=== PATIENT | male | born 1970 | race Caucasian/White ===

== ENCOUNTER 2019-08-04 14:32 | Emergency (ER) | payer BC ==
[2019-08-04] MEDS ORDERED: TAMSULOSIN HCL 0.4 MG CAP.SR.24H PO ONE (15:33)
--- NOTE | 2019-08-04 15:39 | ER Document Report ---
ED Medical Screen (RME) - General Chief Complaint: Flank Pain Stated Complaint: ABDOMINAL PAIN Time Seen by Provider: 08/04/19 15:33 Mode of Arrival: Ambulatory Information source: Patient Notes: 49-year-old male presented to ED for complaint of right flank pain. He states on he had a lot of pain and was not able to urinate Friday he woke up and urinated and the pain was gone Friday night he went to bed was a lot of pain and had not been able to urinate for several hours Friday morning he woke up urinated and the pain was gone. He states last night he went to bed he could not urinate and he had the pain again this morning he urinated but he still has the pain. He states he is still having some trouble urinating but he was able to go some this morning. He is alert oriented respirations regular nonlabored speaking in full sentences. He states he does not have any allergies past medical history is fractured ankle problems with his knee and a right inguinal hernia surgery and a right knee surgery he does not smoke drinks daily and does not use any drugs. He is alert oriented respirations regular nonlabored speaking in full sentences. He has been treated with Flomax and will get blood urine and a CT scan. I have greeted and performed a rapid initial assessment of this patient. A comprehensive ED assessment and evaluation of the patient, analysis of test results and completion of medical decision making process will be conducted by an additional ED providers. Physical Exam - Vital signs Vitals: Temp Pulse Resp BP Pulse Ox 98.3 F 99 18 161/87 H 97 08/04/19 14:37 08/04/19 14:37 08/04/19 14:37 08/04/19 14:37 08/04/19 14:37 Course - Vital Signs Vital signs: Temp Pulse Resp BP Pulse Ox 98.3 F 99 18 161/87 H 97 08/04/19 14:37 08/04/19 14:37 08/04/19 14:37 08/04/19 14:37 08/04/19 14:37
[2019-08-04 16:05] LABS: ABSOLUTE EOSINOPHILS # (AUTO) 0.1 10^3/uL (0.0-0.6); ABSOLUTE LYMPHOCYTES (AUTO) 1.1 10^3/uL (0.5-4.7); ABSOLUTE MONOCYTES (AUTO) 1.1 10^3/uL (0.1-1.4); ABSOLUTE NEUT (AUTO) 8.7 10^3/uL (1.7-8.2); BASOPHILS % (AUTO) 0.2 % (0-2); EOSINOPHILS % (AUTO) 0.5 % (0-6); HEMATOCRIT 44.6 % (37.9-51.0); HEMOGLOBIN 16.2 g/dL (13.5-17.0); LYMPHOCYTES % (AUTO) 9.6 % (13-45); MEAN CORPUSCULAR HEMOGLOBIN 33.1 pg (27.0-33.4); MEAN CORPUSCULAR HGB CONC 36.3 g/dL (32.0-36.0); MEAN CORPUSCULAR VOLUME 91 fl (80-97); MONOCYTES % (AUTO) 10.1 % (3-13); PLATELET COUNT 213 10^3/uL (150-450); RED BLOOD COUNT 4.89 10^6/uL (4.35-5.55); RED CELL DISTRIBUTION WIDTH 13.1 % (11.5-14.0); SEGMENTED NEUTROPHILS % (AUTO) 79.6 % (42-78); TOTAL CELLS COUNTED % (AUTO) 100 %; WHITE BLOOD COUNT 10.9 10^3/uL (4.0-10.5)
--- NOTE | 2019-08-04 16:21 | RADIOLOGY REPORT (SQ) ---
EXAM DESCRIPTION: CT ABD/PELVIS NO ORAL OR IV IMAGES COMPLETED DATE/TIME: 08/04/2019 2:58 pm REASON FOR STUDY: right flank pain COMPARISON: None. TECHNIQUE: CT scan of the abdomen and pelvis performed without intravenous or oral contrast. Images reviewed with lung, soft tissue, and bone windows. Reconstructed coronal and sagittal MPR images revi ewed. All images stored on PACS. All CT scanners at this facility use dose modulation, iterative reconstruction, and/or weight based d osing when appropriate to reduce radiation dose to as low as reasonably achievable (ALARA). [facility]: Dose Right [facility]: CareDose [facility]: Dose Right [facility]: Teradose 4D [facility]: Smart Gamma Medica RADIATION DOSE: CT Rad equipment meets quality standard of care and radiation dose reduction techniq ues were employed. CTDIvol: 8.5 mGy. DLP: 501 mGy-cm.mGy. LIMITATIONS: None. FINDINGS: LOWER CHEST: No significant findings. No nodules or infiltrates. NON-CONTRASTED LIVER, SPLEEN, ADRENALS: Evaluation limited by lack of IV contrast. No identified sign ificant masses. PANCREAS: No masses. No peripancreatic inflammatory changes. GALLBLADDER: No identified stones by CT criteria. No inflammatory changes to suggest cholecystitis. RIGHT KIDNEY AND URETER: No suspicious masses. Assessment limited by lack of IV contrast. There is a punctate nonobstructing right inferior pole renal calculus. There is a distal obstructing 9 mm rig ht ureteral calculus at the ureterovesical junction. Moderate right hydronephrosis and hydroureter. Mild surrounding inflammatory change. LEFT KIDNEY AND URETER: No suspicious masses. Assessment limited by lack of IV contrast. No signifi cant calcifications. No hydronephrosis or hydroureter. AORTA AND RETROPERITONEUM: No aneurysm. No retroperitoneal masses or adenopathy. BOWEL AND PERITONEAL CAVITY: No obvious masses or inflammatory changes. No free fluid. APPENDIX: Normal. PELVIS, BLADDER, AND ABDOMINAL WALL:No abnormal masses. No free fluid. Bladder normal. BONES: No significant findings. OTHER: No other significant finding. IMPRESSION: 1. Obstructing distal right ureteral calculus near the ureteral vesicle junction measures 9 mm. Mode rate right hydronephrosis and hydroureter. 2. Punctate nonobstructing right renal calculus. COMMENT: Quality ID # [id number]: Final reports with documentation of one or more dose reduction techniques (e.g., Automated exposure control, adjustment of the mA and/or kV according to patient size, use of iterative reconstruction technique) TECHNICAL DOCUMENTATION: JOB ID: [id number] 2010 [employer]- All Rights Reserved Reading location - IP/workstation name: [email or web address]
[2019-08-04 16:32] LABS: ALBUMIN 4.7 g/dL (3.5-5.0); ALKALINE PHOSPHATASE 74 U/L (38-126); ANION GAP 9 (5-19); ASPARTATE AMINO TRANSFERASE 23 U/L (17-59); BILIRUBIN,TOTAL 1.9 mg/dL (0.2-1.3); BLOOD UREA NITROGEN 14 mg/dL (7-20); CALCIUM 9.4 mg/dL (8.4-10.2); CARBON DIOXIDE 28 mmol/L (22-30); CHLORIDE 103 mmol/L (98-107); GLUCOSE 127 mg/dL (75-110); POTASSIUM 4.4 mmol/L (3.6-5.0); TOTAL PROTEIN 8.5 g/dL (6.3-8.2)
[2019-08-04] MEDS ORDERED: KETOROLAC TROMETHAMINE INJ/PF 30 MG/1 ML SDV IV ONE (16:41)
[2019-08-04] MEDS ORDERED: NORMAL SALINE 1000 ML 1,000 ML IV ONE (16:41)
--- NOTE | 2019-08-04 16:43 | ER Document Report ---
ED General - General Chief Complaint: Abdominal Pain Stated Complaint: ABDOMINAL PAIN Time Seen by Provider: 08/04/19 15:33 Mode of Arrival: Ambulatory Notes: 49-year-old male presents emergency department complaining of right flank pain and difficulty urinating since . States that and vomiting he developed right flank pain that radiated to his right testicle and he was unable to urinate until Friday morning due to the pain, after he urinated all his symptoms went away, happen again Friday evening and lasted for approximately an hour and then went away with urination and then happened again yesterday. Patient complains of increased frequency and decreased quantity of urine. States he is still having intermittent right flank pain although it is not there whenever he is able to urinate. Denies any dysuria or penile discharge. Denies any history of kidney stones however states that he is mother has a history of kidney stones. - Related Data Allergies/Adverse Reactions: No Known Allergies Allergy (Verified 08/04/19 16:07) Past Medical History - General Information source: Patient - Social History Smoking Status: Never Smoker Frequency of alcohol use: 1-2beers daily Drug Abuse: None Family History: Malignancy - Dad with lung cancer., Other - Mother with kidney stones. Patient has suicidal ideation: No Patient has homicidal ideation: No Past Surgical History: Reports: Hx Abdominal Surgery - hernia, Hx Orthopedic Surgery - R knee Review of Systems - Review of Systems Constitutional: No symptoms reported Genitourinary: See HPI, Frequency, Flank pain, Retention -: Yes All other systems reviewed and negative Physical Exam - Vital signs Vitals: Temp Pulse Resp BP Pulse Ox 98.3 F 99 18 161/87 H 97 08/04/19 14:37 08/04/19 14:37 08/04/19 14:37 08/04/19 14:37 08/04/19 14:37 Interpretation: Hypertensive - Notes Notes: GENERAL: Alert, interacts well. No acute distress. HEAD: Normocephalic, atraumatic EYES: Pupils equal, round and reactive to light, extraocular movements intact. ENT: Oral mucosa moist, tongue midline. NECK: Full range of motion, supple, trachea midline. LUNGS: Clear to auscultation bilaterally, no wheezes, rales or rhonchi, no respiratory distress. HEART: Regular rate and rhythm, no murmurs, gallops, rubs. ABDOMEN: Soft, nontender, nondistended, bowel sounds present in all 4 quadrants. No CVA tenderness to percussion. EXTREMITIES: Moves all 4 extremities spontaneously, no edema, radial and dorsalis pedis pulses 2/4 bilaterally. No cyanosis. NEUROLOGICAL: Alert and oriented x3, normal speech. PSYCH: Normal mood, normal affect. SKIN: Warm, Dry, normal turgor, no rashes or lesions noted. Course - Re-evaluation Re-evalutation: 08/04/19 19:41 CBC shows slight leukocytosis at 10.9, CMP shows elevated creatinine at 2.05, no old available for comparison, urinalysis shows blood but no signs of infection, CT scan shows stone at the right UVJ with hydronephrosis. Abdomen/Pelvis CT 08/04/19 15:34 IMPRESSION: 1. Obstructing distal right ureteral calculus near the ureteral vesicle junction measures 9 mm. Moderate right hydronephrosis and hydroureter. 2. Punctate nonobstructing right renal calculus. After Toradol patient has no pain whatsoever. Patient was hydrated with a liter of normal saline, encouraged to follow-up with primary care as an outpatient for repeat creatinine in 2 weeks, encouraged to follow-up with urology as an outpatient in 1 week if he has not passed the stone by then. Patient did urinate here and the postvoid bladder scan only showed 100 mL's of urine left. Patient will be discharged home. - Vital Signs Vital signs: Temp Pulse Resp BP Pulse Ox 98.3 F 99 18 161/87 H 97 08/04/19 14:37 08/04/19 14:37 08/04/19 14:37 08/04/19 14:37 08/04/19 14:37 - Laboratory Result Diagrams: 08/04/19 15:43 08/04/19 15:43 Laboratory results interpreted by me: 08/04/19 08/04/19 08/04/19 15:43 15:43 16:30 WBC 10.9 H MCHC 36.3 H Lymph % (Auto) 9.6 L Absolute Neuts (auto) 8.7 H Seg Neutrophils % 79.6 H Creatinine 2.05 H Est GFR ( Amer) 42 L Est GFR (MDRD) Non-Af 35 L Glucose 127 H Total Bilirubin 1.9 H Total Protein 8.5 H Urine Protein 30 H Urine Blood MODERATE H Urine Urobilinogen 2.0 H Discharge - Discharge Clinical Impression: Right distal ureteral calculus, Elevated serum creatinine Condition: Stable Disposition: HOME, SELF-CARE Additional Instructions: Kidney Stone You are passing or have passed a kidney stone. These stones are usually due to increased calcium or uric acid concentrations in your urine. Stones within the kidney itself are not painful. The pain occurs as the stone leaves the kidney to pass down the long tube, called the ureter, leading to the bladder. If the stone is small, it will usually pass by itself. Most patients can pass the stone at home. You will usually receive medications for pain, nausea or vomiting, and sometimes a medication to assist in passing the kidney stone. However, if the pain is very severe or if vomiting prevents you from taking oral pain medications, you may need to return for further treatment. Drink three or four quarts of fluids per day. You will be given pain medication (if needed) and urine strainers. Strain all your urine to see if the stone passes. If your doctor has asked you to bring the stone in for analysis, return with the stone once it has passed. Return if pain or vomiting become severe, if you develop a high fever, if you are unable to pass your urine, or if other unusual symptoms occur. Please take ibuprofen 800 mg every 8 hours to help decrease your pain. If you continue to have pain despite taking this medication you may use the Percocet 1 tablet every 4 hours as needed for severe breakthrough pain. I have also prescribed you Zofran and Phenergan to help with the nausea. You should also take Pyridium, this is the same thing as Azo which is available [id number], it will help to numb your kidneys, ureters and bladder to decrease the pain as the stone moves. Finally we have prescribed Flomax, typically this is used to treat prostate problems but in this case may use it to help expand your ureters to help the kidney stone will pass more quickly. Please return to the emergency department for worsening pain, temperature of 100.4 greater or any new or concerning symptoms. Please have your creatinine rechecked in 2 weeks by your primary care physician. Please follow-up with urologist in 1 week if you have not passed the kidney stone. Prescriptions: Promethazine HCl [Phenergan 25 mg Tablet] 25 mg PO Q4HP PRN #20 tablet PRN Reason: Ondansetron [Zofran Odt 4 mg Tablet] 1 - 2 tab PO Q4HP PRN #20 tab.rapdis PRN Reason: Tamsulosin HCl [Flomax 0.4 mg Cap.sr] 0.4 mg PO DAILY #7 cap.sr.24h Oxycodone HCl/Acetaminophen [Percocet 5-325 mg Tablet] 1 tab PO Q4H PRN #15 tablet PRN Reason: Phenazopyridine HCl [Pyridium 200 mg Tablet] 200 mg PO TID #15 tablet Referrals: [facility] [Provider Group] - Follow up as needed [facility] [Provider Group] - Follow up as needed
[2019-08-04 17:15] LABS: APPEARANCE,URINE CLEAR; BILIRUBIN,URINE NEGATIVE (NEGATIVE); COLOR,URINE YELLOW; GLUCOSE, URINE NEGATIVE (NEGATIVE); KETONES,URINE NEGATIVE (NEGATIVE); PROTEIN,URINE 30 mg/dL (NEGATIVE); URINE SPECIFIC GRAVITY 1.029
[2019-08-04 20:29] VITALS: BP 124/67
== END 2019-08-04 20:30 | disposition home or self-care (01) ==
LOC: ER 14:32
DX: N20.1 Calculus of ureter (principal); R94.4 Abnormal results of kidney function studies; R10.9 Unspecified abdominal pain; R35.0 Frequency of micturition; R30.9 Painful micturition, unspecified; N50.811 Right testicular pain; R33.9 Retention of urine, unspecified; Z72.820 Sleep deprivation
CPT/HCPCS: 99284; 96361; 96374; 36415; 85025; 80053; 81001; 74176; J1885; J7030